=== PATIENT | male | born 1990 | race Caucasian/White ===

== ENCOUNTER 2018-03-17 23:53 | Emergency (ER) | payer SELFPAY ==
[~2018-03-17] VITALS: Ht 193 cm; Wt 84.8 kg
[2018-03-17 23:58] VITALS: Ht 193 cm; Wt 84.8 kg
[2018-03-18 03:58] VITALS: BP 134/90
== END 2018-03-18 03:58 | disposition home or self-care (01) ==
LOC: ED 23:53
DX: R22.0 Localized swelling, mass and lump, head (principal)
CPT/HCPCS: J1885

== ENCOUNTER 2018-06-11 08:09 | Emergency (ER) | payer SELFPAY ==
[~2018-06-11] VITALS: Ht 185.4 cm; Wt 86.2 kg
[2018-06-11 08:20] VITALS: Ht 185.4 cm; Wt 86.2 kg
[2018-06-11 08:51] VITALS: BP 158/111
== END 2018-06-11 09:11 | disposition left against medical advice (07) ==
LOC: ED 08:09
DX: F15.921 Other stimulant use, unspecified with intoxication delirium (principal)
CPT/HCPCS: Q0092